=== PATIENT | male | born 1955 | race Asian ===

== ENCOUNTER 2021-12-16 15:41 | Emergency (ER) | payer OTHER ==
[~2021-12-16] VITALS: Ht 165.1 cm; Wt 63.5 kg
--- NOTE | 2021-12-16 15:50 | NUR ---
To ER bed 03, CLAUS RA60 From [facility] "Right side abdominal pain" Daughter states "He told me he fell down from the bed", aaox2, breathing even and non labored, connected to monitor, awaiting md orders
[2021-12-16] MEDS ORDERED: LIDOCAINE 5% (PATCH) 1 EA PATCH TP SCH (16:30)
[2021-12-16] MEDS ORDERED: LIDOCAINE 5% (PATCH) 1 EA PATCH TP ONE (16:52)
--- NOTE | 2021-12-16 16:55 | NUR ---
DR JACOBO AT BEDSIDE TALKING TO PATIENT'S DAUGHTER
[2021-12-16] MEDS ORDERED: KETOROLAC TROMETHAMINE INJ 30 MG/ML VIAL IV ONE (17:00)
--- NOTE | 2021-12-16 17:05 | NUR ---
COVID SWAB DONE AND SENT TO LAB
[2021-12-16] MEDS ORDERED: KETOROLAC TROMETHAMINE 15 MG/ML VIAL ONE (17:07)
--- NOTE | 2021-12-16 17:29 | NUR ---
MOVE SHEET SUBMITTED.
[2021-12-16 17:32] LABS: BASOPHILS % (AUTO) 0.4 % (0.0-2.0); EOSINOPHILS % (AUTO) 0.6 % (0.0-6.0); HEMATOCRIT 38 % (39-51); HEMOGLOBIN 12.8 g/dL (13.5-17.5); LYMPHOCYTES # (AUTO) 0.8 K/uL (0.8-4.8); LYMPHOCYTES % (AUTO) 7.7 % (20.0-44.0); MEAN CORPUSCULAR HGB CONC 34 g/dl (31.0-36.0); MEAN CORPUSCULAR VOLUME 89 fL (80-96); MONOCYTES # (AUTO) 0.5 K/uL (0.1-1.30); NEUTROPHILS # (AUTO) 8.8 K/uL (1.8-8.9); NEUTROPHILS % (AUTO) 86.3 % (43.0-81.0); PLATELET COUNT (AUTO) 206 K/uL (150-450); RED BLOOD CELL COUNT(AUTO) 4.28 MIL/uL (4.5-6.0); WHITE BLOOD COUNT (AUTO) 10.2 K/uL (4.3-11.0)
[2021-12-16] MEDS ORDERED: METF-442 PO (17:46)
[2021-12-16] MEDS ORDERED: ERTU15TA PO (17:46)
[2021-12-16] MEDS ORDERED: ATOR40TA PO (17:46)
[2021-12-16] MEDS ORDERED: ISOS30TA86 PO (17:46)
--- NOTE | 2021-12-16 18:29 | NUR ---
[facility] FROM [facility] [phone]
[2021-12-16 19:07] LABS: CALCIUM, SERUM 9.6 mg/dL (8.5-10.1); CREATININE 0.7 mg/dL (0.6-1.3); POTASSIUM 4.6 mmol/L (3.5-5.1)
--- NOTE | 2021-12-16 19:59 | NUR ---
COVID RESULT FAXED TO [facility]
--- NOTE | 2021-12-16 23:32 | NUR ---
[facility] ACCEPTED [phone] ETA PENDING
--- NOTE | 2021-12-16 23:49 | NUR ---
[facility] eta 30-40 min eta
--- NOTE | 2021-12-17 00:06 | NUR ---
REPORT GIVEN TO [facility] MESI. PATIENT IS GOING TO ROOM 363-8
--- NOTE | 2021-12-17 00:27 | NUR ---
REPORT GIVEN TO RAJANI ASCENCIO OF [facility] UN[address]
--- NOTE | 2021-12-17 01:00 | NUR ---
TRANSFERRED PATIENT TO [facility]IA [facility]
[2021-12-17 01:27] VITALS: BP 132/71
== END 2021-12-17 01:27 | disposition short-term general hospital (02) ==
LOC: ER 15:45
DX: S22.31XA Fracture of one rib, right side, initial encounter for closed fracture (principal); W06.XXXA Fall from bed, initial encounter; Y92.122 Bedroom in nursing home as the place of occurrence of the external cause; R53.81 Other malaise; D64.9 Anemia, unspecified; Z20.822 Contact with and (suspected) exposure to COVID-19; I69.351 Hemiplegia and hemiparesis following cerebral infarction affecting right dominant side; I69.320 Aphasia following cerebral infarction; E11.9 Type 2 diabetes mellitus without complications; Z79.84 Long term (current) use of oral hypoglycemic drugs
CPT/HCPCS: 99285; 96374; 87426; 71100; 85025; 80048; 36415; 87081; J1885; C9803